=== PATIENT | male | born 1995 | race African-American/Black ===

== ENCOUNTER 2016-10-18 15:49 | Emergency (ER) | payer SELFPAY ==
[~2016-10-18] VITALS: Ht 182.9 cm; Wt 84.0 kg
[2016-10-18] MEDS: TETANUS, DIPHTHERIA, PERTUSSIS VAC/PF 0.5ML (>7YR OLD) IM ONE (17:37)
[2016-10-18] MEDS: MORPHINE SULFATE 10 MG/ML CPJ IM ONE (17:38)
[2016-10-18] MEDS: ONDANSETRON 4MG ODT PO ONE (17:39)
[2016-10-18] MEDS: SILVER SULFADIAZINE 1% CREAM 25GM TOP ONE (18:30)
[2016-10-18] MEDS: KETOROLAC 30MG/ML VIAL IV ONE (19:34)
[2016-10-18] MEDS: SODIUM CHLORIDE 0.9% 1,000 ML IV ONE (19:34)
[2016-10-18 19:35] VITALS: BP 140/74
== END 2016-10-18 20:50 | disposition home or self-care (01) ==
LOC: ER 19:48
DX: S30.811A Abrasion of abdominal wall, initial encounter (principal); S50.312A Abrasion of left elbow, initial encounter; S50.311A Abrasion of right elbow, initial encounter; M25.571 Pain in right ankle and joints of right foot; V29.88XA Motorcycle rider (driver) (passenger) injured in other specified transport accidents, initial encounter; Y93.89 Activity, other specified; Y92.89 Other specified places as the place of occurrence of the external cause; Y99.8 Other external cause status
CPT/HCPCS: 73610; 90471; 90715; 96361; 96372; 96374; 99284; A4217; J1885; J2270; J7030; Q0162; Z7610